=== PATIENT | female | born 1975 | race Two or more races ===

== ENCOUNTER 2024-01-24 19:08 | Emergency (ER) | payer MEDICAID, OTHER ==
[~2024-01-24] VITALS: Ht 160 cm; Wt 80.5 kg
[2024-01-24 20:40] LABS: Urine WBC None Seen /hpf (0 - 5)
[2024-01-24 20:41] LABS: Urine Amorphous Crystal FEW /hpf (None Seen); Urine Bacteria FEW /hpf (None Seen); Urine Blood 1+ /uL (Negative); Urine Clarity Ex.Turbid (Clear); Urine Color Brown (Yellow); Urine Mucus FEW (None Seen); Urine Protein, UAD TRACE (Negative); Urine Specific Gravity 1.032 (1.001-1.035); Urine Urobilinogen Normal (Negative)
[2024-01-24 21:18] VITALS: TEMP 98.4
[2024-01-24] MEDS ORDERED: ZOFR4T PO (22:09)
[2024-01-25 00:20] VITALS: BP 120/82; PULSE 76; RESP 16; O2SAT 97
[2024-01-25] MEDS: ONDANSETRON ODT 4 MG TAB PO ONE (00:38)
[2024-01-25] MEDS: SODIUM CHLORIDE 0.9% 1,000 ML IV ONE (00:38)
== END 2024-01-25 01:34 | disposition home or self-care (01) ==
LOC: ER 19:08
DX: A05.9 Bacterial foodborne intoxication, unspecified (principal); E86.0 Dehydration
CPT/HCPCS: 81001; 96360; 99283; J7030; Q0162

== ENCOUNTER 2024-12-27 01:55 | Emergency (ER) | payer MEDICAID ==
[~2024-12-27] VITALS: Ht 154.9 cm; Wt 81.0 kg
[~2024-12-27 01:55] MED LIST: ZOFR4T PO
[2024-12-27 02:10] VITALS: BP 113/55; PULSE 73; RESP 20; TEMP 98.4; O2SAT 96
== END 2024-12-27 03:04 | disposition left against medical advice (07) ==
LOC: ER 01:58
DX: M54.2 Cervicalgia (principal); Z53.21 Procedure and treatment not carried out due to patient leaving prior to being seen by health care provider